=== PATIENT | female | born 1965 | race Caucasian/White ===

== ENCOUNTER 2025-05-24 11:20 | Emergency (ER) | payer OTHER, SELFPAY ==
[2025-05-24 11:26] VITALS: BP 145/96; PULSE 86; RESP 16; O2SAT 97
--- NOTE | 2025-05-24 11:30 | DI.RAD_ITS ---
Exam(s) XR FINGER LT RING EXAM: XR FINGER LT RING CLINICAL HISTORY: Little finger pain. TECHNIQUE: 2D digital imaging was performed. COMPARISON: No exams were available for comparison FINDINGS: 3 views There is bandage material around the distal aspect of the 4th-ring finger. There is a fracture of the tuft of the distal phalanx. On the lateral view there is a 2 mm fracture fragment from the volar aspect of the tuft which is displaced proximally by 3 mm.. There is some overlying soft tissue avulsion. No radiopaque foreign bodies evident. There is also a small calcific density seen adjacent to the medial aspect of the head of the proximal phalanx of the same 4th-ring finger. IMPRESSION: Fracture of the tuft of the distal phalanx with proximal displacement of 1 of the fracture fragments on the volar-plantar aspect, as described above. Other findings as above. DATA REPOSITORY: RADIATION DOSE DELIVERED:
--- NOTE | 2025-05-24 11:34 | ED.GENADUL_ITS ---
Discharge Plan Disposition Patient Disposition: Home Discharge Details Clinical Impression: Open fracture of tuft of distal phalanx of finger, Immunization, tetanus- diphtheria Primary Care Provider: Unknown,Unknown ED Provider: Bruce Macario Home Meds and New Rx's Prescriptions: New cephalexin 500 mg capsule 500 mg PO QID 5 Days Qty: 20 0RF Discharge Instructions Additional Instructions: You were seen in the emergency department for your finger laceration laceration which was closed with sutures that will need to be removed in 7 to 10 days. As we discussed, please keep your wound clean, dry and covered. Please do not soak in a tub, swim or engage in any activities which could introduce dirt into your wound. You may return to the emergency department, go to urgent care or go to your primary care provider in 7 to 10 days to have your stitches removed. As we discussed if you develop any foul-smelling drainage fevers streaking signs of infection or have any other concerns please return to the emergency department. Your tetanus was updated. You are also found to have a small fracture. Please wear the splint as we discussed before following up with orthopedics. For your pain please take medications as follows: 1. Take acetaminophen (Tylenol), 1,000 mg (two 500 mg tabs) every 6 hours [2. Take ibuprofen (Advil), 400 mg every 6 hours.] Stand Alone Forms: Portal Information Referrals: [facility] [Provider Group] HPI General Date/Time Provider Initiated Documentation: 05/24/25 11:26 . HPI Narrative: MDM This is a very well-appearing [id number] 60-year-old female with left ring finger laceration and associated distal tuft fracture for which patient received primary closure in the emergency department, tetanus immunization, prophylactic cephalexin and stack splint along with outpatient orthopedic follow-up. Patient's finger nail is intact. Her volar finger laceration communicated with the distal tip of the nailbed. As result I feel that her subungual hematoma is draining spontaneously so I do not feel that she requires nailbed removal. She was not having any increased pain to suggest benefit from trephination hide the subungual hematoma occupied less than 50% of the nailbed. She had intact range of motion in her left ring finger through flexion and extension at the MCP, PIP, and DIP joints. Her laceration is relatively superficial so I do not feel that it communicates with her distal phalanx fracture. Patient and I discussed that she should return to the ED if she develop streaking signs of infection and any fevers or any foul-smelling drainage. I have asked health equal employment opportunity officer Janine to have the patient seen in the next 10 days by the orthopedic team for reassessment. Patient understood her return indications and was discharged with empiric trial of expectant outpatient management. HPI This is a [id number] 60-year-old female arriving to the emergency department via private vehicle for evaluation of a left ring finger injury. She is right-handed and sustained an injury to her left ring finger when it was caught in a sliding door, resulting in minor bleeding. Despite the injury, she retains full mobility in the affected finger. Denies any other injuries. Has not taken any falls. No syncope. Was in her usual state of health earlier this morning. 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 Exam General: Well-appearing in no acute distress speaking in complete sentences. Head: Normocephalic, atraumatic. Eye: Extraocular eye movements intact. No conjunctival injection. No scleral icterus. Ear, nose, mouth, throat: Grossly normal inspection. Normal voice, handling secretions normally. Neck: Trachea midline. Cardiovascular: Well-perfused distal extremities. Respiratory: Nonlabored respiration. Gastrointestinal: Nondistended abdomen. Musculoskeletal: There is a laceration on the volar surface of the left ring finger that extends from approximately at the level of the DIP joint distally to the tip of the finger just underneath the nail on the dorsal side. The laceration just barely violates the subcutaneous tissue. It is crescentic shaped. Patient has signs of a subungual hematoma less than 50% of her nailbed. Patient is intact full range of motion through flexion and extension at the MCP, PIP, and DIP joints of her left ring finger. Skin: Normal for age and race, grossly normal temperature and turgor. No acute rash. Neurologic: Alert and appropriate, no apparent acute deficits. Psychiatric: Mood and manner are appropriate. Grooming and personal hygiene are appropriate. Related Data Home Medications ?Medication ?Instructions ?Recorded ?Confirmed cephalexin 500 mg capsule 500 mg PO QID 5 days #20 cap s 05/24/25 Previous Rx's ?Medication ?Instructions ?Recorded cephalexin 500 mg capsule 500 mg PO QID 5 days #20 cap s 05/24/25 Allergies Allergy/AdvReac Type Severity Reaction Status Date / Time No Known Allergies Allergy Unverified 05/24/25 12:23 General Stated Complaint: Laceration CIARA: 4 Course Vital Signs Vital signs: Vital Signs Pulse 86 05/24/25 11:26 Respiratory Rate 16 05/24/25 11:26 Blood Pressure 145/96 H 05/24/25 11:26 Pulse Oximetry 97 05/24/25 11:26 Pulse 86 05/24/25 11:26 Respiratory Rate 16 05/24/25 11:26 Blood Pressure 145/96 H 05/24/25 11:26 Pulse Oximetry 97 05/24/25 11:26 Oxygen Delivery Method Room Air 05/24/25 11:26 Oxygen Flow Rate 0 05/24/25 11:26 Procedure Laceration Laceration 1: Date of Procedure: 05/24/25 Time of procedure: 13:00 Provider that performed the procedure: Bruce Macario Patient Consented: Verbally Site: hand Side (If applicable): left Description: linear Depth: simple, single layer Local anesthetic: Lidocaine 2% Amount of anesthesia used (mL): 3 Pre-repair:: wound explored and irrigated extensively Number of sutures:: 6 Technique: simple, interrupted Suture size: 5-0 (Prolene) PFSH All Active Problems (Updated 05/24/25 @ 13:36 by Bruce Macario MD) Immunization, tetanus-diphtheria (Acute) Open fracture of tuft of distal phalanx of finger (Acute) Social History Smoking/Tobacco Use Status: Former Tobacco Use Smoking risk assessment performed?: Yes Drug use: Occasionally Substance use type: marijuana
[2025-05-24] MEDS: Acetaminophen 500 MG TAB 1000 MG PO (12:20)
[2025-05-24] MEDS: Diph,Pertuss(Acell),Tet Vac/Pf 0.5 ML SYR IM (12:20)
[2025-05-24] MEDS: Ibuprofen 600 MG TAB 400 MG PO (12:21)
[2025-05-24] MEDS: Lidocaine 2% Multi-Dose 20 ML VIAL IJ (12:21)
[2025-05-24 13:45] VITALS: BP 143/65; PULSE 62; RESP 20; TEMP 36.6; O2SAT 99
== END 2025-05-24 13:45 | disposition home or self-care (01) ==
LOC: ER 13:52
PROVIDERS: Emergency Provider Emergency Medicine
DX: S62.635A Displaced fracture of distal phalanx of left ring finger, initial encounter for closed fracture (principal); W23.1XXA Caught, crushed, jammed, or pinched between stationary objects, initial encounter
CPT/HCPCS: 99283 ×2; 12001; 90471; 90715; 73140; J2003